=== PATIENT | female | born 1985 | race Caucasian/White ===

== ENCOUNTER → 2024-03-30 | Outpatient (CLI) | payer OTHER ==
[~2024-03-30] MED LIST: BCP TD; CYMBALTA 60MG60 MG PO; DULCOLAX5 MG PO; FLONASE NASAL S16 GM NS; LEVAQUIN 2250 MG/TAB PO; LORTAB 5/500 501 TAB PO; MOTRIN 600600 MG/TAB PO; PERCOCET 325 MG1 TA2 PO; PRENATAL VITAMI1 TAB PO; TYLENOL EXTRA500 M1 PO
== END ==
LOC: MC.RAD 11:12
DX: Z12.31 Encounter for screening mammogram for malignant neoplasm of breast (principal)